=== PATIENT | male | born 1965 | race Caucasian/White ===

== ENCOUNTER 2018-09-13 20:13 | Emergency (ER) | payer OTHER, SELFPAY ==
[2018-05-03 11:45] VITALS: BMI 27.9
[2018-09-13 20:15] VITALS: BP 123/78; PULSE 78; RESP 16; TEMP 36.7; O2SAT 98; BMI 28.5
--- NOTE | 2018-09-13 20:56 | ED.DCSUM_ITS ---
- ER Visit Summary Date of Service: 09/13/18 Chief Complaint: Nail and finger History of Present Illness: The patient is a 53 M who is [id number]. A nail went through a glove and into his left small finger earlier today. He is unsure of his tetanus status. Physical Examination: Patient has a puncture wound to the left small finger over the proximal phalanx, volar side. He is neurovascular intact distally. Test Results: X-rays performed. Emergency Department Course and Treatment: Tetanus updated. Patient treated with clindamycin. Will check x-rays. Treatment Plan: As above Disposition: Discharge Impression: 1. Puncture wound left small finger This note was generated with [employer] dictation software. It may contain incorrect words, spelling, and punctuation that were not noted in review of the chart prior to signing ED Disposition - Plan for ED Patient: Referrals: Makenna Nichols MD [Primary Care Provider] -
--- NOTE | 2018-09-13 20:56 | ED.DEP ---
ED Disposition - Plan for ED Patient: Instructions: ED Wound Puncture General Prescriptions: Clindamycin [Cleocin] 300 mg PO 4X/DAY 5 Days #40 cap Referrals: Makenna Nichols MD [Primary Care Provider] -
--- NOTE | 2018-09-13 21:10 | RAD_ITS ---
STUDY: X-RAY - LEFT HAND, ATTENTION FIFTH FINGER REASON FOR EXAM: Male, 53 years old. Puncture wound TECHNIQUE: 63 view(s) of the finger were obtained. COMPARISON: None. FINDINGS: Normal metacarpal head. Normal metacarpophalangeal joint. Normal proximal phalanx. Normal middle phalanx. Normal distal phalanx. There is mild degenerative arthrosis of the proximal interphalangeal joint. There is mild degenerative arthrosis of the distal interphalangeal joint. RAD/Finger(s) Min 2 Views IMPRESSION: Mild arthrosis, no demonstrated fracture or suspicious osseous lesion Electronically Signed: Dain Novoa MD at 21:20 EDT , Service support ,
[2018-09-13] MEDS: Diphth,Pertuss(Acell),Tet Vac 0.5 ML Vial IM (21:21)
[2018-09-13] MEDS: Clindamycin HCl 150 MG Capsule 450 MG PO (21:21)
[2018-09-13 21:37] VITALS: BP 129/74; PULSE 81; RESP 22; O2SAT 97
--- NOTE | 2018-09-13 21:38 | ED.RN ---
THIS NURSE REVIEWED D/C INSTRUCTIONS WITH PT. PT VERBALIZED UNDERSTANDING OF INSTRUCTIONS. PT DENIES FURTHER NEEDS OR QUESTIONS AT THIS TIME. PT AMBULATES FROM ROOM ON OWN WITHOUT ASSISTANCE FROM STAFF
== END 2018-09-13 21:39 | disposition home or self-care (01) ==
PROVIDERS: Emergency Provider Emergency Medicine; Family Provider Internal Medicine; PCP Internal Medicine
DX: S61.237A Puncture wound without foreign body of left little finger without damage to nail, initial encounter (principal); W45.0XXA Nail entering through skin, initial encounter; Y93.9 Activity, unspecified; Y92.9 Unspecified place or not applicable; Y99.9 Unspecified external cause status; Z23 Encounter for immunization; Z79.899 Other long term (current) drug therapy
CPT/HCPCS: 73140; 90471; 90715; 99283

== ENCOUNTER → 2020-01-25 10:30 | Outpatient (CLI) | payer OTHER, SELFPAY | PROVIDERS: PCP Internal Medicine; Referring Provider Nurse Practitioner; Visit Provider Nurse Practitioner | DX: R94.31 Abnormal electrocardiogram [ECG] [EKG] (principal) | CPT/HCPCS: 93225; 93226 ==

== ENCOUNTER → 2020-02-03 13:14 | Outpatient (CLI) | payer OTHER, SELFPAY ==
--- NOTE | 2020-02-03 13:25 | CT_ITS ---
STUDY: CARDIAC CALCIUM SCORING - CT CHEST REASON FOR EXAM: Male, 54 years old. CALCIUM SCORING, HIGH STRESS JOB, HIGH TRIGLYCERIDES. RADIATION DOSAGE (If Supplied By Facility): CTDIvol = ( 12.19 ) mGy, DLP = ( 243.79 ) mGycm TECHNIQUE: Axial non-enhanced images were acquired through the heart for the sole purpose of measuring coronary artery calcium. Individualized dose optimization techniques were used for this CT. COMPARISON: None. FINDINGS: Visualized portions of the lungs are clear. Mediastinal contents are unremarkable with benign dystrophic calcified lymph nodes related to prior inflammatory disease. Cardiac chambers are normal in size and shape. Pericardium is normal. Osseous structures are intact. Refer to electronic cardiology record for dedicated details of calcium score. CT/Limited Chest CT w/CCTA IMPRESSION: 1. Refer to medical record for additional details from cardiology report of calcium score. 2. No adverse incidental thoracic findings. Please go to: [email or web address] , for a description of the calculator. Electronically Signed: Alivia Motley, at 18:08 EDT Tel , Service support ,
[2020-02-03 13:35] VITALS: BP 114/85; PULSE 70; RESP 14; O2SAT 95; BMI 27.4
--- NOTE | 2020-02-04 14:52 | CA.SCORE ---
Calcium Scoring Date of Study:: 02/03/20 Coronary Calcium Scoring: High-resolution Computed Tomographic imaging of the chest was performed on [ ], with particular attention paid to the coronary arteries. Images from the examination were analyzed for the presence and extent of coronary artery calcification , using coronary calcium quantification software. The patient tolerated the procedure well and there were no complications. The results of the coronary calcification analysis are provided below. - Findings Left Main (LM): 0 Left Anterior Descending (LAD): 0 Left Circumflex (LCX): 0 Right Coronary Artery (RCA): 0 Total Agatston Score: 0 Calcium Scoring Interpretation: 0 No identifiable atherosclerotic plaque. Very low cardiovascular disease risk. <5% chance of presence coronary artery disease A Negative Examination Conclusion: Calcium score is 0. Very low cardiovascular disease risk. <5% chance of presence coronary artery disease A Negative Examination
== END ==
PROVIDERS: PCP Internal Medicine; Visit Provider Nurse Practitioner
DX: Z13.6 Encounter for screening for cardiovascular disorders (principal); Z82.49 Family history of ischemic heart disease and other diseases of the circulatory system
CPT/HCPCS: 75571; 76380

== ENCOUNTER → 2020-05-02 13:57 | Outpatient (CLI) | payer SELFPAY ==
[2020-02-03 13:35] VITALS: BMI 27.4
== END ==
PROVIDERS: PCP Internal Medicine; Referring Provider Nurse Practitioner; Visit Provider Nurse Practitioner
DX: R05 Cough (principal)
CPT/HCPCS: 87633

== ENCOUNTER → 2024-12-14 | Outpatient (CLI) | payer OTHER, SELFPAY ==
[2024-12-14 17:55] LABS: Hematocrit 41.7 % (40-54); Hemoglobin 14.4 g/dL (13.0-16.5); Immature Granulocytes Count 0.020 X10^3/uL (0.0-0.0); Mean Corp Hgb Conc 34.5 g/dL (32-36); Mean Corpuscular Volume 88.5 fL (80-94); Mean Platelet Vol. 9.1 fl (6.2-12.0); NRBC Flagged by Analyzer 0 % (0-5); Platelet Count 295 K/mm3 (150-450); RBC Distribution Width CV 12.6 % (11.6-14.6); RBC Distribution Width SD 41.1 fl (35.1-43.9); Red Blood Count 4.71 M/mm3 (4.6-6.2); White Blood Count 6.3 K/mm3 (4.4-11.0)
[2024-12-14 17:56] LABS: Color, Urine Yellow (Yellow); Glucose, Dipstick Normal (Normal); Ketone-Dipstick Negative (Negative); Leukocyte Esterase-Dipstick Negative /ul (Negative); Nitrite-Dipstick Negative (Negative); Occult Blood-Urine Negative /ul (Negative); Protein-Dipstick 30 mg/dl (Negative); Specific Gravity, Urine 1.025 (1.002-1.030); Urine Bilirubin Dipstick Negative (Negative)
[2024-12-14 18:22] LABS: AST(SGOT) 22 U/L (<=37); Alanine Aminotransfer ALT/SGPT 19 U/L (<=46); Albumin, Serum 4.4 g/dL (3.5-5.0); Alkaline Phosphatase 75 U/L (40-129); Anion Gap 13 (5-15); BUN 16 mg/dL (4-19); BUN/Creat Ratio 14.6 RATIO (10-20); Calcium,Total 9.5 mg/dL (7.6-11.0); Carbon Dioxide 23.5 mmol/L (21.0-32.0); Chloride 104 mmol/L (98-108); Cholesterol 198 mg/dL (<=200); Globulin 3.1 g/dL (2.2-4.2); Glucose 91 mg/dL (70-99); Low Density Lipoprotein Calc. 97 mg/dL; Potassium 4.0 mmol/L (3.3-5.1); Triglycerides 346 mg/dL; Very Low Density Lipoprotein 69 mg/dL (5-40); cholesterol:hdl ratio screen 6.27
[2024-12-16 16:09] LABS: PSA, Total 1.1 ng/mL (0.0-4.0)
== END | disposition home or self-care (01) ==
LOC: MTLAB 14:08
PROVIDERS: PCP Internal Medicine; Referring Provider Nurse Practitioner Family; Visit Provider Nurse Practitioner Family
DX: E78.5 Hyperlipidemia, unspecified (principal); K21.9 Gastro-esophageal reflux disease without esophagitis; Z12.5 Encounter for screening for malignant neoplasm of prostate
CPT/HCPCS: 36415; 80053; 80061; 81002; 84153; 84443; 85025